=== PATIENT | male | born 1940 | race African-American/Black ===

== ENCOUNTER → 2017-01-04 17:14 | Emergency (ER) | payer MEDICARE, OTHER ==
[~2017-01-04] VITALS: Ht 180.3 cm; Wt 81.6 kg
[~2017-01-04 17:14] MED LIST: CLOP75TA41 PO; FOSI20TA PO; LABE100T PO; SIMV-13 PO
[2017-01-04 17:28] VITALS: BP 100/59
== END | disposition home or self-care (01) ==
LOC: ER 17:14
DX: S63.502A Unspecified sprain of left wrist, initial encounter (principal); E78.5 Hyperlipidemia, unspecified; I10 Essential (primary) hypertension
CPT/HCPCS: 29125

== ENCOUNTER 2017-01-25 05:39 | Emergency (ER) | payer MEDICARE, OTHER ==
[~2017-01-25] VITALS: Ht 182.9 cm; Wt 95.3 kg
[2017-01-25 07:20] VITALS: BP 165/108
== END 2017-01-25 07:36 | disposition home or self-care (01) ==
LOC: ER 05:41
DX: M19.90 Unspecified osteoarthritis, unspecified site (principal); E78.5 Hyperlipidemia, unspecified; I10 Essential (primary) hypertension

== ENCOUNTER → 2017-07-19 | Outpatient (CLI) | payer MEDICARE, OTHER ==
[2017-07-19 09:15] LABS: Urine RBC None Seen /hpf (0 - 3)
[2017-07-19 10:18] LABS: Basophils # (auto) 0 uL; Basophils % (auto) 0.3 % (0.0-2.0); Eosinophils # (auto) 0.1 uL; Eosinophils % (auto) 2.3 % (0.0-7.0); Hematocrit 41.7 % (41.0-53.0); Hemoglobin 13.5 g/dL (13.5-17.5); Lymphocytes # (auto) 0.9 uL; Lymphocytes % (auto) 29.7 % (10.0-50.0); Mean Corpuscular Hemoglobin 29.1 pg (28.0-32.0); Mean Corpuscular Hgb Conc. 32.4 g/dL (32.0-36.0); Mean Platelet Volume 9.5 fL (6.9-10.8); Monocytes # (auto) 0.4 uL; Monocytes % (auto) 14.1 % (0.0-12.0); Neutrophils # (auto) 1.7 uL; Neutrophils % (auto) 53.6 % (37.0-80.0); Platelet Count (auto) 215 10^3/uL (140-450); Red Cell Distribution Width 13.7 % (11.8-14.3); White Blood Cell 3.2 10^3/uL (4.4-10.8)
[2017-07-19 10:40] LABS: Albumin 3.4 g/dL (3.4-5.0); BUN/Creatinine Ratio 13.9; Bilirubin, Total 0.5 mg/dL (0.2-1.0); Calcium 9.4 mg/dL (8.5-10.1); Potassium 3.9 mmol/L (3.5-5.1); Total Protein 7.9 g/dL (6.4-8.2); Urine Bilirubin Negative (Negative); Urine Blood Negative /uL (Negative); Urine Color Yellow (Yellow); Urine Glucose Normal (Normal); Urine Ketone Negative (Negative); Urine Nitrite Negative (Negative); Urine Urobilinogen Normal (Negative)
== END | disposition home or self-care (01) ==
LOC: LAB 07:15
PROVIDERS: ATTEND Family Medicine
DX: I10 Essential (primary) hypertension (principal); N40.0 Benign prostatic hyperplasia without lower urinary tract symptoms; E55.9 Vitamin D deficiency, unspecified
CPT/HCPCS: 36415; 80053; 80061; 81001; 82306; 84153; 85025

== ENCOUNTER 2017-11-17 14:23 | Emergency (ER) | payer MEDICARE, OTHER ==
[~2017-11-17] VITALS: Ht 190.5 cm; Wt 71.2 kg
[2017-11-17 14:45] VITALS: BP 103/72
[2017-11-17 15:20] LABS: Urine Bacteria FEW /hpf (None Seen); Urine Blood 2+ /uL (Negative); Urine Mucus FEW (None Seen); Urine Specific Gravity 1.023 (1.001-1.035); Urine WBC 4 /hpf (0 - 3)
[2017-11-17 15:44] LABS: Basophils # (auto) 0 uL; Basophils % (auto) 0.5 % (0.0-2.0); Eosinophils # (auto) 0 uL; Eosinophils % (auto) 0.2 % (0.0-7.0); Hematocrit 39.5 % (41.0-53.0); Hemoglobin 12.8 g/dL (13.5-17.5); Lymphocytes # (auto) 0.5 uL; Lymphocytes % (auto) 9.4 % (10.0-50.0); Mean Corpuscular Hemoglobin 27.8 pg (28.0-32.0); Mean Corpuscular Hgb Conc. 32.3 g/dL (32.0-36.0); Mean Corpuscular Volume 86.2 fL (80.0-100.0); Monocytes # (auto) 0.6 uL; Monocytes % (auto) 11.4 % (0.0-12.0); Neutrophils # (auto) 3.8 uL; Neutrophils % (auto) 78.5 % (37.0-80.0); Nucleated Red Blood Cells % 0.1 %; Platelet Count (auto) 253 10^3/uL (140-450); Red Blood Cells 4.59 10^6/uL (4.5-5.90); Red Cell Distribution Width 14.8 % (11.8-14.3); White Blood Cell 4.9 10^3/uL (4.4-10.8)
[2017-11-17 15:58] LABS: Albumin 2.8 g/dL (3.4-5.0); BUN/Creatinine Ratio 21.9; Bilirubin, Total 0.9 mg/dL (0.2-1.0); Calcium 9.7 mg/dL (8.5-10.1); Potassium 4.3 mmol/L (3.5-5.1); Total Protein 7.8 g/dL (6.4-8.2)
== END 2017-11-17 23:24 | disposition left against medical advice (07) ==
LOC: ER 14:23
DX: R11.2 Nausea with vomiting, unspecified (principal); Z53.21 Procedure and treatment not carried out due to patient leaving prior to being seen by health care provider
CPT/HCPCS: 36415; 80053; 81001; 85025; 93005

== ENCOUNTER 2017-12-15 11:15 | Inpatient (IN) | payer MEDICARE, OTHER ==
[~2017-12-15] VITALS: Ht 182.9 cm; Wt 93.0 kg
[2017-12-15] MEDS ORDERED: SODIUM CHLORIDE 0.9% 1,000 ML IVB ONE (12:15)
[2017-12-15 13:32] LABS: Platelet Count (auto) 91 10^3/uL (140-450)
[2017-12-15 13:34] LABS: Hematocrit 20.3 % (41.0-53.0); Mean Corpuscular Hemoglobin 28.4 pg (28.0-32.0); Mean Corpuscular Hgb Conc. 30.1 g/dL (32.0-36.0); Mean Corpuscular Volume 94.2 fL (80.0-100.0); Red Blood Cells 2.16 10^6/uL (4.5-5.90); Red Cell Distribution Width 17.7 % (11.8-14.3); White Blood Cell 18.7 10^3/uL (4.4-10.8)
[2017-12-15 13:51] LABS: Albumin 1.8 g/dL (3.4-5.0); BUN/Creatinine Ratio 45.8; Calcium 9.3 mg/dL (8.5-10.1); Magnesium 2.1 mg/dL (1.6-2.6)
[2017-12-15 13:53] LABS: Bilirubin, Total 1.1 mg/dL (0.2-1.0); Lactic Acid w/Reflex 13.2 mmol/L (0.4-2.0); Total Protein 5.5 g/dL (6.4-8.2)
[2017-12-15 13:54] LABS: Hemoglobin 6.1 g/dL (13.5-17.5)
[2017-12-15 13:57] LABS: Basophils % (manual) 0 (0.0-2.0); Blast Cells 0; Eosinophils % (manual) 0 (0-7); Metamyelocytes % 0; Myelocytes % 0; Promyelocytes % 0; Reactive Lymphocytes 0
[2017-12-15 14:06] LABS: Prothrombin Time 13.5 sec (9.37-12.3)
[2017-12-15 14:07] LABS: INR 1.24 (0.9-1.15); Partial Thromboplastin Time 28.1 sec (22.64-33.71)
[2017-12-15 14:40] LABS: Band Neutrophils % (manual) 4; Lymphocytes % (manual) 3 (10.0-50.0); Monocytes % (manual) 5 (0-12)
[2017-12-15] MEDS ORDERED: PIPERACILLIN-TAZOB 3.375GM 50 ML IV ONE (14:45)
[2017-12-15] MEDS ORDERED: SODIUM CHLORIDE 0.9% 1,000 ML IV SCH (15:23)
[2017-12-15] MEDS ORDERED: PROMETHAZINE HCL 25 MG/ML 1ML IV PRN (15:30)
[2017-12-15] MEDS ORDERED: PANTOPRAZOLE 40 MG/10 ML VIAL IV ONE (15:30)
[2017-12-15] MEDS ORDERED: NITROGLYCERIN 0.4 MG SL TAB SL PRN (15:30)
[2017-12-15] MEDS ORDERED: cefTRIAXone 1GM/10ml IVPUSH 10 ML IV ONE (15:30)
[2017-12-15] MEDS ORDERED: PHYTONADIONE (VIT K)10 MG/ML 1ML VIAL SUBCUT ONE (15:30)
[2017-12-15] MEDS ORDERED: MORPHINE SULFATE 4 MG/ML SYR/VIAL IV PRN ×3 (15:30)
[2017-12-15 17:35] LABS: Hematocrit 26.2 % (41.0-53.0); Hemoglobin 8.3 g/dL (13.5-17.5)
[2017-12-15 19:20] VITALS: BP 98/64
[2017-12-15 20:30] VITALS: BP 100/64
[2017-12-15 21:18] VITALS: BP 91/76
[2017-12-15 21:44] VITALS: BP 112/60
[2017-12-15 22:00] VITALS: BP 98/64
[2017-12-15] MEDS: metroNIDAZOLE 500MG/100ML 100 ML IV SCH (22:11)
[2017-12-15 23:50] VITALS: BP 132/74
[2017-12-16 01:26] LABS: Hematocrit 34.4 % (41.0-53.0); Hemoglobin 11.1 g/dL (13.5-17.5)
[2017-12-16 05:27] LABS: Basophils # (auto) 0.1 uL; Basophils % (auto) 0.3 % (0.0-2.0); Eosinophils # (auto) 0 uL; Hematocrit 33.9 % (41.0-53.0); Hemoglobin 10.9 g/dL (13.5-17.5); Lymphocytes # (auto) 0.3 uL; Lymphocytes % (auto) 1.3 % (10.0-50.0); Mean Corpuscular Hemoglobin 28.9 pg (28.0-32.0); Mean Corpuscular Hgb Conc. 32.2 g/dL (32.0-36.0); Mean Corpuscular Volume 89.5 fL (80.0-100.0); Monocytes # (auto) 0.8 uL; Monocytes % (auto) 4.3 % (0.0-12.0); Neutrophils # (auto) 18.6 uL; Neutrophils % (auto) 94.1 % (37.0-80.0); Nucleated Red Blood Cells % 0.1 %; Platelet Count (auto) 100 10^3/uL (140-450); Red Blood Cells 3.78 10^6/uL (4.5-5.90); Red Cell Distribution Width 16.7 % (11.8-14.3); White Blood Cell 19.7 10^3/uL (4.4-10.8)
[2017-12-16 05:47] LABS: Albumin 1.9 g/dL (3.4-5.0); BUN/Creatinine Ratio 45.4; Bilirubin, Total 1.3 mg/dL (0.2-1.0); Calcium 9.2 mg/dL (8.5-10.1); Potassium 4.2 mmol/L (3.5-5.1); Total Protein 5.6 g/dL (6.4-8.2)
[2017-12-16] MEDS: metroNIDAZOLE 500MG/100ML 100 ML IV SCH ×3 (06:02→22:09)
[2017-12-16] MEDS: cefTRIAXone 1GM/10ml IVPUSH 10 ML IV SCH (09:06)
[2017-12-16 09:17] LABS: Lactic Acid w/Reflex 9.3 mmol/L (0.4-2.0)
[2017-12-16] MEDS: PANTOPRAZOLE 40 MG/10 ML VIAL IV SCH (10:59)
[2017-12-16] MEDS ORDERED: LIDOCAINE 2% JELLY 11ml (GLYDO) ONE (11:06)
[2017-12-16] MEDS ORDERED: SODIUM CHLORIDE 0.9% 2,000 ML IV ONE (12:00)
[2017-12-16 12:07] LABS: Urine Bacteria MOD /hpf (None Seen); Urine Blood 3+ /uL (Negative); Urine Mucus FEW (None Seen); Urine Specific Gravity 1.016 (1.001-1.035); Urine WBC 578 /hpf (0 - 3)
[2017-12-16 12:21] LABS: Protein, Urine 104.5 mg/dL (0.0-11.9)
[2017-12-16] MEDS ORDERED: LIDOCAINE 2% JELLY 11ml (GLYDO) UR ONE (13:45)
[2017-12-16] MEDS: SODIUM CHLORIDE 0.9% 1,000 ML IV SCH ×2 (14:50→23:17)
[2017-12-16] MEDS ORDERED: NOREPINEPHRINE 8 MG/250ML KIT 250 ML IV ONE (15:03)
[2017-12-16] MEDS: NOREPINEPHRINE 8 MG/250ML KIT 250 ML IV SCH (15:16)
[2017-12-16 17:59] LABS: BUN/Creatinine Ratio 43.4; Calcium 8.8 mg/dL (8.5-10.1); Potassium 4.1 mmol/L (3.5-5.1)
[2017-12-17] VITALS (9 sets, daily range): BP systolic 103–143; BP diastolic 62–82
[2017-12-17] MEDS: LORazepam 2MG/ML-1ML VIAL IV PRN ×2 (01:52→08:15)
[2017-12-17] MEDS: metroNIDAZOLE 500MG/100ML 100 ML IV SCH ×3 (06:07→23:20)
[2017-12-17 06:13] LABS: BUN/Creatinine Ratio 42.9; Calcium 8.7 mg/dL (8.5-10.1); Phosphorus 4.8 mg/dL (2.5-4.90); Potassium 4.1 mmol/L (3.5-5.1)
[2017-12-17 06:21] LABS: Basophils # (auto) 0 uL; Basophils % (auto) 0.1 % (0.0-2.0); Eosinophils # (auto) 0 uL; Hematocrit 33.8 % (41.0-53.0); Hemoglobin 10.7 g/dL (13.5-17.5); Lymphocytes # (auto) 0.4 uL; Lymphocytes % (auto) 2.1 % (10.0-50.0); Mean Corpuscular Hemoglobin 28.7 pg (28.0-32.0); Mean Corpuscular Hgb Conc. 31.6 g/dL (32.0-36.0); Mean Corpuscular Volume 90.9 fL (80.0-100.0); Monocytes % (auto) 5.3 % (0.0-12.0); Neutrophils % (auto) 92.5 % (37.0-80.0); Nucleated Red Blood Cells % 0.2 %; Platelet Count (auto) 106 10^3/uL (140-450); Red Blood Cells 3.72 10^6/uL (4.5-5.90); Red Cell Distribution Width 17.1 % (11.8-14.3); White Blood Cell 19.4 10^3/uL (4.4-10.8)
[2017-12-17] MEDS: SODIUM CHLORIDE 0.9% 1,000 ML IV SCH (07:36)
[2017-12-17] MEDS: cefTRIAXone 1GM/10ml IVPUSH 10 ML IV SCH (08:19)
[2017-12-17] MEDS: PANTOPRAZOLE 40 MG/10 ML VIAL IV SCH (10:14)
[2017-12-17] MEDS ORDERED: ALBUMIN 25% 100 ML IV ONE (11:45)
[2017-12-17] MEDS: FUROSEMIDE 20 MG/2 ML VIAL IV SCH (14:01)
[2017-12-17] MEDS: SODIUM BICARBONATE 50ML VIAL 50 ML in D5W/SOD CHL 0.45% 1,000 ML IV SCH ×2 (15:35→22:15)
[2017-12-17] MEDS: NOREPINEPHRINE 8 MG/250ML KIT 250 ML IV SCH (15:36)
[2017-12-18] VITALS (90 sets, daily range): BP systolic 70–133; BP diastolic 36–83
[2017-12-18] MEDS: SODIUM BICARBONATE 50ML VIAL 50 ML in D5W 5% 1,000 ML IV SCH ×2 (01:10→13:45)
[2017-12-18] MEDS: NOREPINEPHRINE 8 MG/250ML KIT 250 ML IV SCH (02:05)
[2017-12-18 04:59] LABS: Basophils # (auto) 0 uL; Basophils % (auto) 0.1 % (0.0-2.0); Eosinophils # (auto) 0 uL; Hematocrit 32.6 % (41.0-53.0); Hemoglobin 10.1 g/dL (13.5-17.5); Lymphocytes # (auto) 0.5 uL; Lymphocytes % (auto) 2.8 % (10.0-50.0); Mean Corpuscular Hemoglobin 28.8 pg (28.0-32.0); Mean Corpuscular Volume 93.1 fL (80.0-100.0); Monocytes # (auto) 0.8 uL; Monocytes % (auto) 4.7 % (0.0-12.0); Neutrophils # (auto) 15.3 uL; Neutrophils % (auto) 92.4 % (37.0-80.0); Nucleated Red Blood Cells % 0.2 %; Platelet Count (auto) 83 10^3/uL (140-450); Red Cell Distribution Width 17.7 % (11.8-14.3); White Blood Cell 16.5 10^3/uL (4.4-10.8)
[2017-12-18 05:06] LABS: Albumin 1.9 g/dL (3.4-5.0); BUN/Creatinine Ratio 41.8; Calcium 8.2 mg/dL (8.5-10.1); Potassium 3.4 mmol/L (3.5-5.1)
[2017-12-18 05:09] LABS: Bilirubin, Total 1.2 mg/dL (0.2-1.0); Total Protein 5.1 g/dL (6.4-8.2)
[2017-12-18] MEDS: metroNIDAZOLE 500MG/100ML 100 ML IV SCH ×3 (06:10→21:34)
[2017-12-18] MEDS: PANTOPRAZOLE 40 MG/10 ML VIAL IV SCH (10:32)
[2017-12-18] MEDS: FUROSEMIDE 20 MG/2 ML VIAL IV SCH (10:33)
[2017-12-18] MEDS: cefTRIAXone 1GM/10ml IVPUSH 10 ML IV SCH (10:33)
[2017-12-18] MEDS ORDERED: CLINIMIX PER PHARMACY 0 ML IV SCH (11:45)
[2017-12-18 12:18] LABS: Magnesium 2.1 mg/dL (1.6-2.6)
[2017-12-18] MEDS: POTASSIUM CHL 20MEQ/100ML 100 ML IV SCH ×2 (14:27→16:10)
[2017-12-18] MEDS ORDERED: PPN PER PHARMACY IV NR ×7 (20:00)
[2017-12-19] VITALS (95 sets, daily range): BP systolic 86–133; BP diastolic 50–89
[2017-12-19] MEDS: ACCU-CHEK COMFORT CURVE STRIP VI SCH ×5 (00:18→23:29)
[2017-12-19] MEDS: InsuLIN REG 1unit/0.01ml Soln (100units/ml) SC SCH ×5 (06:00→23:29)
[2017-12-19] MEDS: metroNIDAZOLE 500MG/100ML 100 ML IV SCH ×3 (06:34→22:25)
[2017-12-19 08:49] LABS: Basophils # (auto) 0 uL; Basophils % (auto) 0.1 % (0.0-2.0); Eosinophils # (auto) 0 uL; Hematocrit 36.3 % (41.0-53.0); Hemoglobin 11.2 g/dL (13.5-17.5); Lymphocytes # (auto) 0.4 uL; Monocytes # (auto) 0.9 uL
[2017-12-19 08:51] LABS: Lymphocytes % (auto) 2.4 % (10.0-50.0); Mean Corpuscular Hgb Conc. 30.8 g/dL (32.0-36.0); Mean Corpuscular Volume 94.2 fL (80.0-100.0); Monocytes % (auto) 5.5 % (0.0-12.0); Neutrophils # (auto) 15.7 uL; Nucleated Red Blood Cells % 0.4 %; Platelet Count (auto) 55 10^3/uL (140-450); Red Blood Cells 3.85 10^6/uL (4.5-5.90); Red Cell Distribution Width 18.3 % (11.8-14.3); White Blood Cell 17.1 10^3/uL (4.4-10.8)
[2017-12-19 09:15] LABS: Anion Gap 23 (5-15); Carbon Dioxide 11 mmol/L (21-32); Chloride 115 mmol/L (98-107); Potassium 3.7 mmol/L (3.5-5.1); Sodium 149 mmol/L (136-145)
[2017-12-19] MEDS: cefTRIAXone 1GM/10ml IVPUSH 10 ML IV SCH (09:15)
[2017-12-19 09:16] LABS: Albumin 1.9 g/dL (3.4-5.0); Aspartate Aminotransferase 321 U/L (15-37); Glucose 119 mg/dL (74-106); Magnesium 2.1 mg/dL (1.6-2.6)
[2017-12-19 09:17] LABS: Alanine Aminotransferase 81 U/L (16-61); Bilirubin, Total 1.3 mg/dL (0.2-1.0); Phosphorus 3.4 mg/dL (2.5-4.90); Total Protein 5.5 g/dL (6.4-8.2); Triglycerides 90 mg/dL (< 150)
[2017-12-19 09:18] LABS: Alkaline Phosphatase 125 U/L (45-117); BUN/Creatinine Ratio 37.2; Blood Urea Nitrogen 74 mg/dL (7-18); GFR African American 42 mL/min; GFR Non-African American 35 mL/min; Pre Albumin < 3.0 mg/dL (20.0-40.0)
[2017-12-19] MEDS: SODIUM BICARBONATE 50ML VIAL 50 ML in D5W 5% 1,000 ML IV SCH ×2 (09:40→23:29)
[2017-12-19] MEDS: FUROSEMIDE 20 MG/2 ML VIAL IV SCH (09:40)
[2017-12-19] MEDS: PANTOPRAZOLE 40 MG/10 ML VIAL IV SCH (09:40)
[2017-12-19] MEDS: LORazepam 2MG/ML-1ML VIAL IV PRN (09:57)
[2017-12-19] MEDS: NOREPINEPHRINE 8 MG/250ML KIT 250 ML IV SCH ×2 (14:55→22:20)
[2017-12-19] MEDS ORDERED: PPN PER PHARMACY IV NR ×8 (20:00)
[2017-12-20] VITALS (54 sets, daily range): BP systolic 88–124; BP diastolic 60–87
[2017-12-20 03:57] LABS: Basophils # (auto) 0 uL; Basophils % (auto) 0.1 % (0.0-2.0); Eosinophils # (auto) 0 uL; Hemoglobin 10.7 g/dL (13.5-17.5); Lymphocytes # (auto) 0.5 uL; Monocytes # (auto) 1.2 uL
[2017-12-20 04:00] LABS: Eosinophils % (auto) 0.1 % (0.0-7.0); Hematocrit 34.9 % (41.0-53.0); Lymphocytes % (auto) 2.7 % (10.0-50.0); Mean Corpuscular Hemoglobin 29.2 pg (28.0-32.0); Mean Corpuscular Hgb Conc. 30.6 g/dL (32.0-36.0); Mean Corpuscular Volume 95.4 fL (80.0-100.0); Neutrophils # (auto) 17.9 uL; Neutrophils % (auto) 91.1 % (37.0-80.0); Nucleated Red Blood Cells % 0.5 %; Platelet Count (auto) 49 10^3/uL (140-450); Red Blood Cells 3.66 10^6/uL (4.5-5.90); Red Cell Distribution Width 18.9 % (11.8-14.3); White Blood Cell 19.6 10^3/uL (4.4-10.8)
[2017-12-20 04:33] LABS: Albumin 1.7 g/dL (3.4-5.0); BUN/Creatinine Ratio 39.6; Bilirubin, Total 1.5 mg/dL (0.2-1.0); Calcium 7.9 mg/dL (8.5-10.1); Magnesium 2.1 mg/dL (1.6-2.6); Phosphorus 3.2 mg/dL (2.5-4.90); Potassium 3.6 mmol/L (3.5-5.1); Total Protein 5.1 g/dL (6.4-8.2)
[2017-12-20] MEDS: InsuLIN REG 1unit/0.01ml Soln (100units/ml) SC SCH ×4 (06:00→17:59)
[2017-12-20] MEDS: metroNIDAZOLE 500MG/100ML 100 ML IV SCH ×3 (06:03→21:52)
[2017-12-20] MEDS: ACCU-CHEK COMFORT CURVE STRIP VI SCH ×4 (06:03→17:54)
[2017-12-20] MEDS: NOREPINEPHRINE 8 MG/250ML KIT 250 ML IV SCH ×2 (08:48→22:01)
[2017-12-20] MEDS: PANTOPRAZOLE 40 MG/10 ML VIAL IV SCH (09:50)
[2017-12-20] MEDS: cefTRIAXone 1GM/10ml IVPUSH 10 ML IV SCH (09:51)
[2017-12-20] MEDS: FUROSEMIDE 20 MG/2 ML VIAL IV SCH (09:52)
[2017-12-20] MEDS ORDERED: ALBUMIN 25% 100 ML IV ONE (11:30)
[2017-12-20] MEDS: SODIUM BICARBONATE 50ML VIAL 100 ML in D5W 5% 1,000 ML IV SCH ×2 (12:30→22:23)
[2017-12-20] MEDS: POTASSIUM CHL 20MEQ/100ML 100 ML IV SCH ×3 (13:45→17:00)
[2017-12-20] MEDS ORDERED: PPN PER PHARMACY IV NR ×8 (20:00)
[2017-12-21] VITALS (90 sets, daily range): BP systolic 84–121; BP diastolic 52–102
[2017-12-21] MEDS: ACCU-CHEK COMFORT CURVE STRIP VI SCH ×4 (00:24→18:00)
[2017-12-21] MEDS: NOREPINEPHRINE 8 MG/250ML KIT 250 ML IV SCH (01:00)
[2017-12-21 04:14] LABS: Hemoglobin 10.2 g/dL (13.5-17.5); Mean Corpuscular Volume 97.7 fL (80.0-100.0)
[2017-12-21 04:16] LABS: Hematocrit 33.9 % (41.0-53.0); Mean Corpuscular Hemoglobin 29.4 pg (28.0-32.0); Mean Corpuscular Hgb Conc. 30.1 g/dL (32.0-36.0); Platelet Count (auto) 28 10^3/uL (140-450); Red Blood Cells 3.47 10^6/uL (4.5-5.90); Red Cell Distribution Width 19.3 % (11.8-14.3)
[2017-12-21 04:36] LABS: Basophils % (manual) 0 (0.0-2.0); Blast Cells 0; Eosinophils % (manual) 0 (0-7); Myelocytes % 0; Promyelocytes % 0; Reactive Lymphocytes 0
[2017-12-21 04:40] LABS: BUN/Creatinine Ratio 40.3; Bilirubin, Total 1.9 mg/dL (0.2-1.0); Potassium 4.2 mmol/L (3.5-5.1); Total Protein 5.1 g/dL (6.4-8.2)
[2017-12-21 04:41] LABS: Magnesium 1.8 mg/dL (1.6-2.6)
[2017-12-21 05:03] LABS: Band Neutrophils % (manual) 5; Lymphocytes % (manual) 2 (10.0-50.0); Metamyelocytes % 1; Monocytes % (manual) 4 (0-12)
[2017-12-21] MEDS: metroNIDAZOLE 500MG/100ML 100 ML IV SCH (05:58)
[2017-12-21] MEDS: InsuLIN REG 1unit/0.01ml Soln (100units/ml) SC SCH ×4 (06:00→18:00)
[2017-12-21] MEDS ORDERED: FLUCONAZOLE 200MG/100ML 100 ML IV SCH (10:00)
[2017-12-21] MEDS: FLUCONAZOLE 200MG/100ML 100 ML IV SCH (10:00)
[2017-12-21] MEDS ORDERED: SODIUM CHLORIDE 0.9% 1,000 ML IV ONE (10:00)
[2017-12-21] MEDS ORDERED: VANCOMYCIN PER PHARMACY 0 MG IV SCH (10:00)
[2017-12-21] MEDS: PANTOPRAZOLE 40 MG/10 ML VIAL IV SCH (10:32)
[2017-12-21] MEDS ORDERED: FUROSEMIDE 100 MG/10ML VIAL IV ONE (11:15)
[2017-12-21] MEDS ORDERED: AMIODARONE HCL 900 MG in DEXTROSE 500 ML IV SCH (11:28)
[2017-12-21] MEDS: MAGNESIUM SULFATE 1GM/100ML 100 ML IV SCH ×2 (11:50→13:32)
[2017-12-21] MEDS ORDERED: PIPERACILLIN-TAZOB 3.375GM 100 ML IV SCH (12:00)
[2017-12-21 13:05] LABS: Lactic Acid w/Reflex 16.9 mmol/L (0.4-2.0)
[2017-12-21] MEDS: MEROPENEM 1gm/20ml IVPUSH 20 ML IV SCH ×2 (13:27→22:17)
[2017-12-21] MEDS ORDERED: ALBUMIN 25% 50 ML IV SCH (14:00)
[2017-12-21] MEDS ORDERED: VANCOMYCIN 1,250 MG in D5W 5% 250 ML IV ONE (15:00)
[2017-12-21] MEDS ORDERED: SODIUM BICARBONATE 50ML VIAL 50 ML in D5W 5% 1,000 ML IV SCH (15:15)
[2017-12-21] MEDS ORDERED: SODIUM BICARBONATE 50ML VIAL 100 ML in D5W 5% 1,000 ML IV SCH (15:45)
[2017-12-21] MEDS ORDERED: PPN PER PHARMACY IV NR ×8 (20:00)
[2017-12-21] MEDS: AMIODARONE HCL 900 MG in DEXTROSE 500 ML IV SCH (21:11)
[2017-12-22] VITALS (96 sets, daily range): BP systolic 87–162; BP diastolic 55–95
[2017-12-22 01:36] LABS: Hematocrit 31.4 % (41.0-53.0); Hemoglobin 9.6 g/dL (13.5-17.5); Red Blood Cells 3.27 10^6/uL (4.5-5.90); White Blood Cell 20.8 10^3/uL (4.4-10.8)
[2017-12-22 01:38] LABS: Mean Corpuscular Hemoglobin 29.4 pg (28.0-32.0); Mean Corpuscular Hgb Conc. 30.6 g/dL (32.0-36.0); Platelet Count (auto) 81 10^3/uL (140-450); Red Cell Distribution Width 18.9 % (11.8-14.3)
[2017-12-22 01:43] LABS: Basophils % (manual) 0 (0.0-2.0); Blast Cells 0; Eosinophils % (manual) 0 (0-7); Metamyelocytes % 0; Myelocytes % 0; Promyelocytes % 0; Reactive Lymphocytes 0
[2017-12-22 01:52] LABS: BUN/Creatinine Ratio 42.2; Calcium 8.6 mg/dL (8.5-10.1); Magnesium 2.1 mg/dL (1.6-2.6); Phosphorus 3.5 mg/dL (2.5-4.90); Potassium 4.7 mmol/L (3.5-5.1)
[2017-12-22 01:54] LABS: Bilirubin, Total 2.3 mg/dL (0.2-1.0); Total Protein 5.2 g/dL (6.4-8.2)
[2017-12-22 01:59] LABS: Band Neutrophils % (manual) 10; Lymphocytes % (manual) 1 (10.0-50.0); Monocytes % (manual) 7 (0-12)
[2017-12-22] MEDS: ACCU-CHEK COMFORT CURVE STRIP VI SCH ×4 (05:32→18:00)
[2017-12-22] MEDS: InsuLIN REG 1unit/0.01ml Soln (100units/ml) SC SCH ×4 (05:32→18:00)
[2017-12-22] MEDS: NOREPINEPHRINE 8 MG/250ML KIT 250 ML IV SCH ×2 (08:05→19:15)
[2017-12-22 08:45] LABS: Lactic Acid w/Reflex 16.7 mmol/L (0.4-2.0)
[2017-12-22] MEDS: FLUCONAZOLE 200MG/100ML 100 ML IV SCH (10:10)
[2017-12-22] MEDS: PANTOPRAZOLE 40 MG/10 ML VIAL IV SCH (10:11)
[2017-12-22] MEDS: MEROPENEM 1gm/20ml IVPUSH 20 ML IV SCH ×2 (10:11→22:00)
[2017-12-22] MEDS ORDERED: AMIODARONE HCL 0 MG IV ONE (12:41)
[2017-12-22] MEDS ORDERED: NOREPINEPHRINE 8 MG/250ML KIT 250 ML IV ONE (12:59)
[2017-12-22] MEDS: SODIUM BICARBONATE 50ML VIAL 100 ML in D5W 5% 1,000 ML IV SCH ×2 (13:46→19:45)
[2017-12-22] MEDS ORDERED: LIDOCAINE 1% HCL (LOCAL ANESTH.) INJ 20ML MDV ID ONE (15:00)
[2017-12-22] MEDS: AMIODARONE HCL 900 MG in DEXTROSE 500 ML IV SCH (15:31)
[2017-12-22] MEDS: VANCOMYCIN 1,250 MG in D5W 5% 250 ML IV SCH (16:44)
[2017-12-22] MEDS ORDERED: PPN PER PHARMACY IV NR ×10 (20:00)
[2017-12-22] MEDS: SODIUM CHLOR 0.9% PF (SALINE LOCK) 10ML VIAL IV SCH (22:00)
[2017-12-23] VITALS (91 sets, daily range): BP systolic 87–139; BP diastolic 52–86
[2017-12-23] MEDS: NOREPINEPHRINE 8 MG/250ML KIT 250 ML IV SCH ×2 (01:17→14:16)
[2017-12-23 03:56] LABS: Basophils # (auto) 0 uL; Eosinophils # (auto) 0 uL; Lymphocytes # (auto) 0.3 uL; Lymphocytes % (auto) 1.8 % (10.0-50.0); Platelet Count (auto) 48 10^3/uL (140-450)
[2017-12-23 04:01] LABS: Basophils % (auto) 0.1 % (0.0-2.0); Hematocrit 28.6 % (41.0-53.0); Mean Corpuscular Hemoglobin 29.4 pg (28.0-32.0); Mean Corpuscular Hgb Conc. 31.4 g/dL (32.0-36.0); Mean Corpuscular Volume 93.6 fL (80.0-100.0); Monocytes % (auto) 5.9 % (0.0-12.0); Neutrophils # (auto) 15.8 uL; Neutrophils % (auto) 92.2 % (37.0-80.0); Nucleated Red Blood Cells % 0.7 %; Red Blood Cells 3.06 10^6/uL (4.5-5.90); White Blood Cell 17.2 10^3/uL (4.4-10.8)
[2017-12-23 04:23] LABS: Lactic Acid w/Reflex 15.2 mmol/L (0.4-2.0)
[2017-12-23 04:27] LABS: Albumin 1.6 g/dL (3.4-5.0); BUN/Creatinine Ratio 44.8; Bilirubin, Total 2.3 mg/dL (0.2-1.0); Calcium 8.2 mg/dL (8.5-10.1); Magnesium 2.2 mg/dL (1.6-2.6); Phosphorus 3.8 mg/dL (2.5-4.90); Pre Albumin 3.2 mg/dL (20.0-40.0); Total Protein 4.8 g/dL (6.4-8.2)
[2017-12-23] MEDS: InsuLIN REG 1unit/0.01ml Soln (100units/ml) SC SCH ×4 (06:00→18:00)
[2017-12-23] MEDS: ACCU-CHEK COMFORT CURVE STRIP VI SCH ×4 (06:08→18:00)
[2017-12-23] MEDS: SODIUM BICARBONATE 50ML VIAL 100 ML in D5W 5% 1,000 ML IV SCH ×2 (06:45→17:45)
[2017-12-23] MEDS: MEROPENEM 1gm/20ml IVPUSH 20 ML IV SCH ×2 (10:00→21:45)
[2017-12-23] MEDS: SODIUM CHLOR 0.9% PF (SALINE LOCK) 10ML VIAL IV SCH ×2 (10:00→21:45)
[2017-12-23] MEDS: FLUCONAZOLE 200MG/100ML 100 ML IV SCH (10:31)
[2017-12-23] MEDS: PANTOPRAZOLE 40 MG/10 ML VIAL IV SCH (10:32)
[2017-12-23] MEDS: AMIODARONE HCL 900 MG in DEXTROSE 500 ML IV SCH (10:49)
[2017-12-23] MEDS: DEXTROSE (50%) 50ML SYRG IV SCH ×2 (11:58→17:07)
[2017-12-23] MEDS: ALBUMIN 25% 100 ML IV SCH ×2 (12:00→18:00)
[2017-12-23] MEDS: FUROSEMIDE 40 MG/4 ML VIAL IV SCH ×2 (14:15→18:00)
[2017-12-23] MEDS: VANCOMYCIN 1,250 MG in D5W 5% 250 ML IV SCH (16:00)
[2017-12-23] MEDS ORDERED: PPN PER PHARMACY IV NR ×8 (20:00)
[2017-12-24] VITALS (25 sets, daily range): BP systolic 64–120; BP diastolic 33–78
[2017-12-24 04:09] LABS: Hemoglobin 7.4 g/dL (13.5-17.5)
[2017-12-24 04:14] LABS: Hematocrit 22.7 % (41.0-53.0); Mean Corpuscular Hemoglobin 29.9 pg (28.0-32.0); Mean Corpuscular Hgb Conc. 32.7 g/dL (32.0-36.0); Mean Corpuscular Volume 91.4 fL (80.0-100.0); Platelet Count (auto) 39 10^3/uL (140-450); Red Blood Cells 2.48 10^6/uL (4.5-5.90); Red Cell Distribution Width 18.1 % (11.8-14.3); White Blood Cell 14.7 10^3/uL (4.4-10.8)
[2017-12-24 04:25] LABS: Basophils % (manual) 0 (0.0-2.0); Blast Cells 0; Eosinophils % (manual) 0 (0-7); Lymphocytes % (manual) 0 (10.0-50.0); Metamyelocytes % 0; Myelocytes % 0; Promyelocytes % 0; Reactive Lymphocytes 0
[2017-12-24 04:29] LABS: Lactic Acid w/Reflex 11.8 mmol/L (0.4-2.0)
[2017-12-24 04:31] LABS: Albumin 2.5 g/dL (3.4-5.0); Calcium 8.6 mg/dL (8.5-10.1); Magnesium 2.1 mg/dL (1.6-2.6)
[2017-12-24 04:34] LABS: Phosphorus 3.8 mg/dL (2.5-4.90); Total Protein 5.1 g/dL (6.4-8.2)
[2017-12-24 04:45] LABS: BUN/Creatinine Ratio 44.3
[2017-12-24] MEDS: SODIUM BICARBONATE 50ML VIAL 100 ML in D5W 5% 1,000 ML IV SCH (04:45)
[2017-12-24 04:58] LABS: Band Neutrophils % (manual) 4; Monocytes % (manual) 4 (0-12)
[2017-12-24] MEDS: ALBUMIN 25% 100 ML IV SCH ×2 (05:00)
[2017-12-24] MEDS: ACCU-CHEK COMFORT CURVE STRIP VI SCH ×2 (05:00)
[2017-12-24] MEDS: FUROSEMIDE 40 MG/4 ML VIAL IV SCH (06:00)
[2017-12-24] MEDS: InsuLIN REG 1unit/0.01ml Soln (100units/ml) SC SCH ×2 (06:00)
[2017-12-24] MEDS ORDERED: PPN PER PHARMACY IV NR ×7 (20:00)
== END 2017-12-24 08:45 | disposition expired | DRG 871 ==
LOC: ER 11:15 → EDBD 11:15 → OVERFLOW 11:16 → ICU WEST 12-17 20:10
PROVIDERS: ADMIT Internal Medicine; ATTEND Internal Medicine
PROC: 30233R1 Transfusion of Nonautologous Platelets into Peripheral Vein, Percutaneous Approach (ICD-10-PCS; principal; 2017-12-15)
PROC: 5A1935Z Respiratory Ventilation, Less than 24 Consecutive Hours (ICD-10-PCS; 2017-12-21)
PROC: 30233N1 Transfusion of Nonautologous Red Blood Cells into Peripheral Vein, Percutaneous Approach (ICD-10-PCS; 2017-12-21)
PROC: 02H633Z Insertion of Infusion Device into Right Atrium, Percutaneous Approach (ICD-10-PCS; 2017-12-22)
DX: A41.9 Sepsis, unspecified organism (principal); N17.0 Acute kidney failure with tubular necrosis; E43 Unspecified severe protein-calorie malnutrition; R65.21 Severe sepsis with septic shock; G92 Toxic encephalopathy; I47.2 Ventricular tachycardia; J18.9 Pneumonia, unspecified organism; N18.4 Chronic kidney disease, stage 4 (severe); L89.154 Pressure ulcer of sacral region, stage 4; T85.528A Displacement of other gastrointestinal prosthetic devices, implants and grafts, initial encounter; C78.01 Secondary malignant neoplasm of right lung; C78.7 Secondary malignant neoplasm of liver and intrahepatic bile duct; C78.02 Secondary malignant neoplasm of left lung; I42.9 Cardiomyopathy, unspecified; C79.51 Secondary malignant neoplasm of bone; B37.49 Other urogenital candidiasis; E87.0 Hyperosmolality and hypernatremia; I13.0 Hypertensive heart and chronic kidney disease with heart failure and stage 1 through stage 4 chronic kidney disease, or unspecified chronic kidney disease; I50.22 Chronic systolic (congestive) heart failure; J44.0 Chronic obstructive pulmonary disease with (acute) lower respiratory infection; C64.2 Malignant neoplasm of left kidney, except renal pelvis; Z66 Do not resuscitate; D63.0 Anemia in neoplastic disease; D69.59 Other secondary thrombocytopenia; E78.5 Hyperlipidemia, unspecified; F41.9 Anxiety disorder, unspecified; E86.9 Volume depletion, unspecified; I70.0 Atherosclerosis of aorta; Y83.8 Other surgical procedures as the cause of abnormal reaction of the patient, or of later complication, without mention of misadventure at the time of the procedure; I25.10 Atherosclerotic heart disease of native coronary artery without angina pectoris; I48.91 Unspecified atrial fibrillation; R62.7 Adult failure to thrive; Y95 Nosocomial condition; Z82.49 Family history of ischemic heart disease and other diseases of the circulatory system; Z83.3 Family history of diabetes mellitus; Z79.899 Other long term (current) drug therapy; Z90.89 Acquired absence of other organs; Y92.89 Other specified places as the place of occurrence of the external cause; Z90.79 Acquired absence of other genital organ(s); Z85.46 Personal history of malignant neoplasm of prostate; Z74.01 Bed confinement status
CPT/HCPCS: 36415; 36569; 36600; 71045; 74176; 80048; 80053; 81001; 82040; 82150; 82533; 82570; 82805; 82962; 83605; 83735; 83880; 84100; 84156; 84300; 84478; 85007; 85014; 85018; 85025; 85027; 85045; 85610; 85730; 86850; 86900; 86901; 86920; 87040; 87081; 87086; 93005; 94761; 96361; 96374; 96375; 96379; C9113; G0378; J1450; J1815; J2543; J3430; J3480; J3490; J7060; J7131; P9047